=== PATIENT | female | born 1975 | race Caucasian/White ===

== ENCOUNTER 2024-05-25 06:20 | Inpatient (IN) ==
[2024-05-25] MEDS: NOZIN NASAL SANITIZER TP ONE (07:00)
[2024-05-25] MEDS: LR 1,000 ML IV 1,000 ML IV ONE ×2 (07:00→09:07)
[2024-05-25] MEDS ORDERED: ULTANE GAS IN ONE (07:00)
[2024-05-25] MEDS ORDERED: KETAMINE HCL ONE (07:00)
[2024-05-25] MEDS: PEPCID 20 MG VIAL IVP PRN (07:18)
[2024-05-25] MEDS: ZOFRAN INJ 4 MG VIAL IVP PRN (07:18)
[2024-05-25] MEDS: VERSED IVP PRN (07:18)
[2024-05-25] MEDS: ANCEF VIAL 1 GRAM ONE (07:19)
[2024-05-25] MEDS: NS 100 ML IV 100 ML ONE (07:19)
[2024-05-25] MEDS: ANCEF VIAL 1 GRAM IV PRN (07:23)
[2024-05-25] MEDS: LR 1,000 ML IV 1,000 ML IV PRN (07:23)
[2024-05-25] MEDS: PRECEDEX INJ VIAL ONE (07:23)
[2024-05-25] MEDS: PEPCID 20 MG VIAL ONE (07:23)
[2024-05-25] MEDS: DIPRIVAN VIAL 20 ML ONE (07:23)
[2024-05-25] MEDS: VERSED ONE (07:23)
[2024-05-25] MEDS: FENTANYL VIAL INJ 100 mcg ONE (07:23)
[2024-05-25] MEDS: BRIDION ONE (07:23)
[2024-05-25] MEDS: ZOFRAN INJ 4 MG VIAL ONE (07:23)
[2024-05-25 07:26] VITALS: BMI 31.0
[2024-05-25] MEDS: DIPRIVAN VIAL 120 ML IVP PRN (07:31)
[2024-05-25] MEDS: FENTANYL VIAL INJ 100 mcg IVP PRN (07:31)
[2024-05-25] MEDS: BETADINE SOLN ONE (07:38)
[2024-05-25] MEDS: ZEMURON 100 MG VIAL ONE (07:46)
[2024-05-25] MEDS: OFIRMEV IV 1000 MG VIAL 1,000 MG/100 ML VIAL IV ONE (07:46)
[2024-05-25] MEDS: ProvayBLUE 0.5% ONE (07:56)
[2024-05-25] MEDS: ROBINUL IVP PRN (08:00)
[2024-05-25] MEDS: OFIRMEV IV 1000 MG VIAL 1,000 MG/100 ML VIAL IV PRN (08:20)
[2024-05-25] MEDS: ROBINUL ONE (08:22)
[2024-05-25] MEDS: KETAMINE HCL IV PRN (08:36)
[2024-05-25] MEDS: ZEMURON 100 MG VIAL IVP PRN (09:06)
[2024-05-25] MEDS ORDERED: BARHEMSYS INJ IVP PRN (09:17)
[2024-05-25] MEDS ORDERED: ZOFRAN INJ 4 MG VIAL IVP PRN ×2 (09:17→11:26)
[2024-05-25] MEDS ORDERED: DILAUDID INJ IVP PRN (09:17)
[2024-05-25] MEDS ORDERED: REGLAN INJ 10 MG VIAL IVP PRN (09:17)
[2024-05-25] MEDS ORDERED: BENADRYL INJ 50 MG VIAL IVP PRN ×2 (09:17→11:26)
[2024-05-25] MEDS: PRECEDEX INJ VIAL IVP PRN (09:28)
[2024-05-25] MEDS: BRIDION IVP PRN (09:29)
[2024-05-25] MEDS: DILAUDID INJ ONE ×2 (09:51→10:09)
[2024-05-25] MEDS ORDERED: NARCAN INJ IVP PRN (11:26)
[2024-05-25] MEDS: MORPHINE SULFATE PCA 30 MG IVP PRN (12:30)
[2024-05-25] MEDS: D5 1/2 NS 1,000 ML 1,000 ML IV SCH (13:23)
[2024-05-25] MEDS: TORADOL 30 MG VIAL IVP PRN (20:20)
[2024-05-26 05:18] LABS: BASOPHILS % (AUTO) 0.4 % (0.2-1.0); EOSINOPHILS # (AUTO) 0.1 x10^3/uL (0.0-0.2); EOSINOPHILS % (AUTO) 0.8 % (0.9-2.9); HEMATOCRIT 39.5 % (36.0-47.0); HEMOGLOBIN 13.5 g/dL (12.0-16.0); LYMPHOCYTES # (AUTO) 2.1 X10^3/uL (1.3-2.9); LYMPHOCYTES % (AUTO) 18.2 % (21.0-51.0); MEAN CORPUSCULAR HEMOGLOBIN 31.3 pg (27.0-34.0); MEAN CORPUSCULAR HGB CONC 34.1 g/dL (33.0-35.0); MEAN CORPUSCULAR VOLUME 91.9 fL (80.0-100.0); MEAN PLATELET VOLUME 7.7 fL (7.4-11.0); MONOCYTES # (AUTO) 0.9 x10^3/uL (0.3-0.8); MONOCYTES % (AUTO) 7.4 % (0.0-13.0); NEUTROPHILS # (AUTO) 8.5 x10^3/uL (2.2-4.8); NEUTROPHILS % (AUTO) 73.2 % (42.0-75.0); PLATELET COUNT 280 X10^3/uL (150.0-450.0); WHITE BLOOD COUNT 11.7 X10^3/uL (3.6-10.0)
[2024-05-26 05:30] LABS: BLOOD UREA NITROGEN 6 mg/dL (7-18); CALCIUM 8.8 mg/dL (8.5-10.1); CARBON DIOXIDE 28.9 mmol/L (21-32); CHLORIDE 101 mmol/L (98-107); COR NA(FOR HYPERGLY) 138 mmol/L (136-145); CREATININE 0.92 mg/dL (0.55-1.02); GLUCOSE 120 mg/dL (65-99); POTASSIUM 3.8 mmol/L (3.5-5.1); SODIUM 138 mmol/L (136-145); eGFR NON BLACK RACES > 60 (>60)
[2024-05-26] MEDS: CLARITIN PO SCH (08:37)
[2024-05-26] MEDS: COLACE CAP 100 MG PO SCH (08:37)
[2024-05-26] MEDS: MOTRIN TAB 800 MG PO PRN (08:37)
[2024-05-26] MEDS: ESTRACE PO SCH (08:38)
[2024-05-26] MEDS: PERCOCET TAB 5/325 MG PO PRN (11:24)
[2024-05-26] MEDS: BACTROBAN TOPICAL OINT TOP SCH (14:40)
[2024-05-26] MEDS: CRESTOR TAB 10 MG PO SCH (20:12)
[2024-05-27 08:02] VITALS: BP 171/94; PULSE 66; RESP 17; TEMP 98.3; O2SAT 100
== END 2024-05-27 08:12 | disposition home or self-care (01) | DRG 743 ==
LOC: MED/SURG 06:20
PROVIDERS: ADMIT Specialist; ATTEND Specialist
DX: Z59.82 Transportation insecurity; R10.2 Pelvic and perineal pain; N92.5 Other specified irregular menstruation